=== PATIENT | female | born 1945 | race Hispanic/Latino ===

== ENCOUNTER → 2021-05-14 | Outpatient (CLI) | payer MEDICARE ==
[~2021-05-14] MED LIST: GABAPENTIN400 MG PO; OMEPRAZOLE40 MG PO; PENTOXIFYLLINE400 MG PO; SUCRALFATE1 GM PO
== END ==
LOC: MAMMO 14:17
PROVIDERS: ATTEND Internal Medicine
DX: Z12.31 Encounter for screening mammogram for malignant neoplasm of breast (principal); M47.816 Spondylosis without myelopathy or radiculopathy, lumbar region
CPT/HCPCS: 72110; 77067

== ENCOUNTER → 2022-06-10 | Outpatient (CLI) | payer MEDICARE | LOC: MAMMO 10:00 | PROVIDERS: ATTEND Internal Medicine | DX: Z12.31 Encounter for screening mammogram for malignant neoplasm of breast (principal); M47.12 Other spondylosis with myelopathy, cervical region; M47.816 Spondylosis without myelopathy or radiculopathy, lumbar region; E66.01 Morbid (severe) obesity due to excess calories | CPT/HCPCS: 72050; 72110; 77067 ==

== ENCOUNTER → 2022-07-10 | Outpatient (CLI) | payer MEDICARE | LOC: DX 13:36 | PROVIDERS: ATTEND Internal Medicine | DX: Z13.820 Encounter for screening for osteoporosis (principal); N95.9 Unspecified menopausal and perimenopausal disorder | CPT/HCPCS: 77080 ==

== ENCOUNTER → 2023-03-13 | Outpatient (REF) | payer MEDICARE ==
[~2023-03-13] MED LIST changes: +IOPAMIDOL 370 MG/ML 100 ML INFUS..BTL INJ ONE
[2023-03-13 12:41] LABS: CREATININE, SERUM 0.72 mg/dL (0.57-1.11)
== END ==
LOC: CT 11:49
PROVIDERS: ATTEND Internal Medicine
DX: R10.2 Pelvic and perineal pain (principal); S43.431D Superior glenoid labrum lesion of right shoulder, subsequent encounter
CPT/HCPCS: 36415; 72193; 73030; 82565; 84520; Q9967

== ENCOUNTER 2023-10-12 14:35 | Emergency (ER) | payer MEDICARE ==
[~2023-10-12] VITALS: Ht 157.5 cm; Wt 92.5 kg
[~2023-10-12 14:35] MED LIST changes: -IOPAMIDOL 370 MG/ML 100 ML INFUS..BTL INJ ONE
[2023-10-12 14:40] VITALS: TEMP 98.2
[2023-10-12] MEDS: HYDROCODONE/APAP 5MG-325MG TAB PO ONE (17:11)
[2023-10-12] MEDS ORDERED: ULTRAM 50MG50 MG PO (18:53)
[2023-10-12 19:30] VITALS: PULSE 70; RESP 16
[2023-10-12 20:37] VITALS: BP 137/74; PULSE 70; RESP 18; O2SAT 100
== END 2023-10-12 19:50 | disposition home or self-care (01) ==
LOC: ER 14:52
DX: M25.561 Pain in right knee (principal); Y93.01 Activity, walking, marching and hiking; I10 Essential (primary) hypertension; E78.5 Hyperlipidemia, unspecified; K21.9 Gastro-esophageal reflux disease without esophagitis
CPT/HCPCS: 99283

== ENCOUNTER → 2024-07-13 | Outpatient (REF) | payer MEDICARE ==
[~2024-07-13] MED LIST changes: +ULTRAM 50MG50 MG PO
== END ==
LOC: MAMMO 11:23
PROVIDERS: ATTEND Internal Medicine
DX: Z12.31 Encounter for screening mammogram for malignant neoplasm of breast (principal); Z13.820 Encounter for screening for osteoporosis
CPT/HCPCS: 77067; 77080